=== PATIENT | male | born 1970 | race Two or more races ===

== ENCOUNTER 2017-12-31 00:01 | Inpatient (IN) | payer SELFPAY ==
[2017-12-31] VITALS (10 sets, daily range): BP systolic 98–124; BP diastolic 57–80
[~2017-12-31] VITALS: Ht 188 cm; Wt 77.3 kg
[2017-12-31] MEDS ORDERED: LEVE500T53 PO (00:10)
[2017-12-31] MEDS ORDERED: DIVA500T35 PO (00:10)
[2017-12-31 00:40] LABS: BASOPHILS % (AUTO) 0.6 % (0.0-2.0); EOSINOPHILS % (AUTO) 1.5 % (1.0-6.0); HEMATOCRIT 47.9 % (41-53); HEMOGLOBIN 16.6 g/dL (13.5-17.5); LYMPHOCYTES # (AUTO) 2.3 K/uL (1.0-4.8); LYMPHOCYTES % (AUTO) 44.2 % (22.0-44.0); MEAN CORPUSCULAR HEMOGLOBIN 30.2 pg (26.0-34.0); MEAN CORPUSCULAR HGB CONC 34.6 G/dL (31.0-37.0); MEAN CORPUSCULAR VOLUME 88 fL (80-100); MONOCYTES # (AUTO) 0.4 K/uL (0.1-1.0); MONOCYTES % (AUTO) 7.9 % (2.0-9.0); NEUTROPHILS # (AUTO) 2.4 K/uL (1.8-7.7); NEUTROPHILS % (AUTO) 45.8 % (40.0-70.0); PLATELET COUNT (AUTO) 232 K/uL (150-450); RED BLOOD CELL COUNT(AUTO) 5.48 MIL/uL (4.50-5.90); RED CELL DISTRIBUTION WIDTH 13.8 % (11.5-14.5)
[2017-12-31 00:48] LABS: AMPHET/METH SCREEN,URINE NEGATIVE (NEGATIVE); BARBITURATE SCREEN, URINE NEGATIVE (NEGATIVE); BENZODIAZEPINES SCREEN,URINE NEGATIVE (NEGATIVE); CANNABINOID SCREEN,URINE POSITIVE (NEGATIVE); COCAINE SCREEN,URINE NEGATIVE (NEGATIVE); METHADONE SCREEN, URINE NEGATIVE (NEGATIVE); OPIATE SCREEN,URINE NEGATIVE (NEGATIVE)
[2017-12-31 00:48] LABS: ANION GAP 9 mmol/L (8-16); CALCIUM, TOTAL 8.4 mg/dL (8.8-10.5); CARBON DIOXIDE 26 mmol/L (22-29); CHLORIDE 105 mmol/L (98-107); CREATININE 0.92 mg/dL (0.60-1.30); GLOMERULAR FILTR. RATE CALC > 60 mL/min (>60); GLUCOSE,RANDOM 85 mg/dL (70-110); POTASSIUM 3.6 mmol/L (3.5-5.1); SODIUM SERUM 140 mmol/L (136-145); UREA NITROGEN, BLOOD 13 mg/dL (7-18)
[2017-12-31 00:49] LABS: PHENCYCLIDINE SCREEN,URINE NEGATIVE (NEGATIVE)
[2017-12-31 01:02] LABS: ALANINE AMINOTRANSFERASE 26 U/L (12-78); ALKALINE PHOSPHATASE 53 U/L (46-116); ASPARTATE AMINOTRANSFERASE 22 U/L (15-37); BILIRUBIN,TOTAL 0.6 mg/dL (0.1-1.0); TOTAL PROTEIN, SERUM 7.4 g/dL (6.4-8.2)
[2017-12-31] MEDS ORDERED: LORazepam 2 MG TABLET PO PRN (01:15)
[2017-12-31] MEDS ORDERED: LORazepam 2 MG/ML VIAL IM ONE (01:15)
[2017-12-31] MEDS ORDERED: HALOPERIDOL 5 MG TABLET PO PRN (01:15)
[2017-12-31] MEDS ORDERED: HALOPERIDOL LACTATE 5 MG/ML VIAL IM ONE (01:15)
[2017-12-31] MEDS ORDERED: DiphenhydrAMINE HCL 50 MG/ML VIAL IM ONE (01:15)
[2017-12-31] MEDS ORDERED: ZOLPIDEM TARTRATE 10 MG TABLET PO PRN (01:15)
[2017-12-31] MEDS ORDERED: LevETIRAcetam 500 MG TABLET PO ONE (01:45)
[2017-12-31 03:14] LABS: APPEARANCE,URINE CLEAR (CLEAR); BILIRUBIN,URINE NEGATIVE (NEGATIVE); GLUCOSE, URINE (UA) NEGATIVE (NEGATIVE); KETONES,URINE NEGATIVE (NEGATIVE); LEUKOCYTE ESTERASE ,URINE NEGATIVE (NEGATIVE); NITRATE,URINE NEGATIVE (NEGATIVE); OCCULT BLOOD,URINE NEGATIVE (NEGATIVE); PH,URINE 6.5 (5.0-8.0); PROTEIN,URINE NEGATIVE (NEGATIVE); UROBILINOGEN,URINE 0.2 mg/dL (<=1.0)
[2017-12-31] MEDS ORDERED: CloNIDine HCL 0.1 MG TABLET PO PRN (08:30)
[2017-12-31] MEDS ORDERED: IBUPROFEN 600 MG TABLET PO PRN (08:30)
[2017-12-31] MEDS ORDERED: MAG HYDROX/AL HYDROX/SIMETH ES 30 ML SUSPENSION UDCUP PO PRN (08:30)
[2017-12-31] MEDS ORDERED: LOPERAMIDE HCL 2 MG CAPSULE PO PRN (08:30)
[2017-12-31] MEDS ORDERED: ALBUTEROL SULFATE HFA 90 MCG/PUFF 8 GM INHALER IH PRN (08:30)
[2017-12-31] MEDS ORDERED: PETROLATUM,WHITE 71 GM JELLY TP PRN (08:30)
[2017-12-31] MEDS ORDERED: ONDANSETRON HCL 4 MG TABLET PO PRN (08:30)
[2017-12-31] MEDS ORDERED: BACITRACIN 28.4 GM OINTMENT TP PRN (08:30)
[2017-12-31] MEDS ORDERED: MAGNESIUM HYDROXIDE SUSPENSION 30 ML UDCUP PO PRN (08:30)
[2017-12-31] MEDS ORDERED: ACETAMINOPHEN 325 MG TABLET PO PRN (08:30)
[2017-12-31] MEDS ORDERED: BENZOCAINE/MENTHOL LOZENGE MM PRN (08:30)
[2017-12-31] MEDS: LevETIRAcetam 500 MG TABLET PO SCH ×2 (08:53→16:09)
[2018-01-01 01:54] VITALS: BP 119/86
[2018-01-01 02:00] VITALS: BP 123/82
[2018-01-01 06:04] VITALS: BP 118/86
[2018-01-01] MEDS: LevETIRAcetam 500 MG TABLET PO SCH ×2 (09:13→16:24)
[2018-01-01] MEDS: DIVALPROEX SODIUM 500 MG DR TABLET PO SCH ×2 (09:13→16:24)
[2018-01-01 10:00] VITALS: BP 124/79
[2018-01-01 10:08] VITALS: BP 124/79
[2018-01-01 16:09] VITALS: BP 117/71
[2018-01-02 04:27] VITALS: BP 105/75
[2018-01-02 08:00] VITALS: BP 113/82
[2018-01-02 08:09] VITALS: BP 113/82
[2018-01-02] MEDS: DIVALPROEX SODIUM 500 MG DR TABLET PO SCH ×2 (08:57→16:12)
[2018-01-02] MEDS: LevETIRAcetam 500 MG TABLET PO SCH ×2 (08:57→16:12)
[2018-01-02 16:00] VITALS: BP 126/86
[2018-01-02 16:24] VITALS: BP 128/86
[2018-01-03 01:15] VITALS: BP 119/74
[2018-01-03] MEDS: DIVALPROEX SODIUM 500 MG DR TABLET PO SCH (08:04)
[2018-01-03] MEDS: LevETIRAcetam 500 MG TABLET PO SCH (08:04)
[2018-01-03 08:14] VITALS: BP 122/99
== END 2018-01-03 09:15 | disposition home or self-care (01) | DRG 885 ==
LOC: EMS 00:01 → B2S 02:32 → EMS 02:33 → B2S 03:00
PROVIDERS: ADMIT Psychiatry & Neurology Psychiatry; ATTEND Psychiatry & Neurology Psychiatry
DX: F31.9 Bipolar disorder, unspecified (principal); F22 Delusional disorders; F10.10 Alcohol abuse, uncomplicated; F12.90 Cannabis use, unspecified, uncomplicated; F17.200 Nicotine dependence, unspecified, uncomplicated; F41.9 Anxiety disorder, unspecified; G40.909 Epilepsy, unspecified, not intractable, without status epilepticus; G47.00 Insomnia, unspecified; I10 Essential (primary) hypertension; Z71.6 Tobacco abuse counseling
CPT/HCPCS: 82306; 99285; G0480; J1200; J1630; J2060